=== PATIENT | female | born 1990 | race Caucasian/White ===

== ENCOUNTER 2017-02-05 15:35 | Emergency (ER) | payer BC, OTHER ==
[2017-02-05 15:43] VITALS: BP 103/73; PULSE 92; TEMP 98.3; BMI 24.3
[2017-02-05] MEDS ORDERED: IBUPROFEN 600 MG TABLET (FP) PO ONE ×2 (16:05→16:20)
--- NOTE | 2017-02-05 16:09 | PDOC ---
History of Present Illness - History of Present Illness Initial Comments: 02/05/17 16:17 The patient is a 26 year old female with no significant past medical history who presents to the Emergency Department with right foot/ankle pain and swelling since 11:30 this morning. Patient stated that she tripped and fell on a broken curb earlier. She was able to hobble across the street when the right foot and ankle pain began to really set in and worsened. She rates her pain 9/ 10. She is unable to ambulate without pain. She did not take Motrin or any pain medication. She denies any other pain or symptoms. <Nohemy Hall - Last Filed: 02/05/17 16:30> - General History Source: Patient Exam Limitations: No Limitations <Clarissa Cordero - Last Filed: 02/07/17 08:49> - General Chief Complaint: Injury Stated Complaint: RIGTH FOOT PAIN S/P FALL Time Seen by Provider: 02/05/17 15:43 Past History <Nohemy Hall - Last Filed: 02/05/17 16:30> - Past Medical History Asthma: No Cancer: No Cardiac Disorders: No CVA: No COPD: No CHF: No Dementia: No Diabetes: No GI Disorders: Yes (GERD) Disorders: No HTN: No Liver Disease: No Psychiatric Problems: Yes (anxiety, has been on Klonopin when necessary) Seizures: No Thyroid Disease: No - Surgical History Abdominal Surgery: No Appendectomy: No Cardiac Surgery: No Cholecystectomy: No Lung Surgery: No Neurologic Surgery: No Orthopedic Surgery: No - Immunization History Td Vaccination: Yes (11/28/13) Immunization Up to Date: Yes - Suicide/Smoking/Psychosocial Hx Smoking Status: No Smoking History: Never smoked Have you smoked in the past 12 months: No Number of Cigarettes Smoked Daily: 0 Information on smoking cessation initiated: No Hx Alcohol Use: No Drug/Substance Use Hx: No Substance Use Type: None Hx Substance Use Treatment: No <Clarissa Cordero - Last Filed: 02/07/17 08:49> - Past Medical History Allergies/Adverse Reactions: Allergies Allergy/AdvReac Type Severity Reaction Status Date / Time Penicillins Allergy Intermediate Verified 02/05/17 15:37 shellfish derived Allergy Verified 02/05/17 15:37 metoclopramide HCl AdvReac Severe Verified 02/05/17 15:37 [From Reglan] Home Medications: Ambulatory Orders Clonazepam [Klonopin] 1 mg PO PRN PRN tablet 11/23/13 Ibuprofen [Motrin -] 600 mg PO TID PRN #21 tablet 02/05/17 Levofloxacin [Levaquin] 0 mg PO ASDIR 02/05/17 Review of Systems - Review of Systems Comments:: 02/05/17 16:18 GENERAL/CONSTITUTIONAL: No: fever, chills, weakness, loss of appetite. HEAD, EYES, EARS, NOSE AND THROAT: No: change in vision, ear pain, discharge, sore throat, throat swelling. CARDIOVASCULAR: No: chest pain, lightheadedness, palpitations, syncope RESPIRATORY: No: cough, shortness of breath, wheezing, hemoptysis, stridor. GASTROINTESTINAL: No: nausea, vomiting, abdominal cramping, diarrhea, rectal bleeding, constipation. GENITOURINARY: No: dysuria, hematuria, frequency, urgency, flank pain. MUSCULOSKELETAL: + Right foot and ankle pain and swelling. No: back pain, neck pain, joint pain. SKIN AND BREASTS: No: lesions, pallor, rash or easy bruising. NEUROLOGIC: No: headache, vertigo, paresthesias, weakness ENDOCRINE: No: unexplained weight gain or loss HEMATOLOGIC/LYMPHATIC: No: anemia, easy bleeding, swelling nodes <Noehmy Hall - Last Filed: 02/05/17 16:30> *Physical Exam - Vital Signs Last Vital Signs Temp Pulse Resp BP Pulse Ox 98.3 F 92 H 18 103/73 100 02/05/17 15:36 02/05/17 15:36 02/05/17 15:36 02/05/17 15:36 02/05/17 15:36 - Physical Exam Comments: 02/05/17 16:30 GENERAL: The patient is in no acute distress. HEAD: Normal with no signs of trauma. EYES: PERRLA, EOMI, sclera anicteric, conjunctiva clear. ENT: Ears normal, nares patent, oropharynx clear without exudates. Moist mucous membranes. NECK: Normal range of motion, supple without lymphadenopathy, JVD, or masses. LUNGS: Breath sounds equal, clear to auscultation bilaterally. No wheezes, and no crackles. HEART:Regular rate and rhythm, normal S1 and S2 without murmur, rub or gallop. ABDOMEN: Soft, nontender, normoactive bowel sounds. No guarding, no rebound. EXTREMITIES: +Right lateral banquet bartender to palpation. +Swelling of the lateral malleolus. No lateral malleolar tenderness to palpation. No bruising. 2+ pt, 2+ , dp. Sensation intact. No clubbing or cyanosis. No erythema. NEUROLOGICAL: Cranial nerves II through XII grossly intact. Normal speech. No focal neurological deficits. MUSCULOSKELETAL: Back non-tender to palpation, no CVA tenderness SKIN: Warm, Dry, normal turgor, no rashes or lesions noted. <Nohemy Hall - Last Filed: 02/05/17 16:30> - Vital Signs Last Vital Signs Temp Pulse Resp BP Pulse Ox 98.3 F 92 H 18 103/73 100 02/05/17 15:36 02/05/17 15:36 02/05/17 15:36 02/05/17 15:36 02/05/17 15:36 <Clarissa Cordero - Last Filed: 02/07/17 08:49> ED Treatment Course - RADIOLOGY Radiology Studies Ordered: Category Date Time Status ANKLE & FOOT-RIGHT* [RAD] Stat Radiology 02/05/17 16:05 Ordered <Clarissa Cordero - Last Filed: 02/07/17 08:49> Medical Decision Making - Medical Decision Making 02/05/17 16:06 I, Dr. Clarissa Cordero, attest that this document has been prepared under my direction and personally reviewed by me in its entirety. I further attest, that it accurately reflects all work, treatment, procedures and medical decision -making performed by me. 02/05/17 16:06 26 yo F presenting to the ER with foot pain s/p trip and fall Pt states that she tripped over a curb PT currently has tenderness to palpation of the lateral malleolus and right lateral metatarsal Pt has not taken any motrin or tylenol for pain Pt states she was able to hobble before but currently can not bear weight on the foot Will do: xray Motrin for pain 02/05/17 17:44 Xray read as negative by radiologist Will discharge to home Air cast Follow up with Ortho There is a small possibility of occult fracture <Clarissa Cordero - Last Filed: 02/07/17 08:49> *DC/Admit/Observation/Transfer - Attestations Scribe Attestion: 02/05/17 16:18 Documentation prepared by Nohemy Hall, acting as infertility medical assistant for Clarissa Cordero MD. <Nohemy Hall - Last Filed: 02/05/17 16:30> - Discharge Dispostion Admit: No <Clarissa Cordero - Last Filed: 02/07/17 08:49> Diagnosis at time of Disposition: Right ankle sprain Qualifiers: Encounter type: initial encounter Involved ligament of ankle: unspecified ligament Qualified Code(s): S93.401A - Sprain of unspecified ligament of right ankle, initial encounter - Discharge Dispostion Disposition: HOME Condition at time of disposition: Stable - Prescriptions Prescriptions: Ibuprofen [Motrin -] 600 mg PO TID PRN #21 tablet PRN Reason: ankle pain - Referrals Referrals: Camacho uW MD [Staff Physician] - - Patient Instructions Printed Discharge Instructions: DI for Ankle Pain Additional Instructions: Thank you for coming in to the ER today Today you were seen for ankle pain and the X-ray demonstrated no signs of fracture (broken bone), for that reason it is more likely a sprain based on your symptoms and the appearance and exam findings of your ankle. Please be sure to rest, ice and elevate it and to avoid bearing weight until feeling better. You may take the medications weve provided you as directed but please be sure to read the instructions provided by the pharmacist to make sure you take the medications correctly. You should not participate in any sports for at least 1 week or until you are feeling better. Follow up with your primary cares office, or the referral weve provided you within 24 hours to inform them of todays visit and to see if they would like to /need to see you. If you develop any new or worsening symptoms, or any fevers that cant be controlled with Tylenol or Motrin go directly to the emergency room. - Post Discharge Activity Forms/Work/School Notes: Back to Work
[2017-02-05] MEDS ORDERED: ACETAMINOPHEN WITH CODEINE 300MG/30MG TABLET PO ONE (18:09)
[2017-02-05] MEDS ORDERED: ACETAMINOPHEN WITH CODEINE 300MG/30MG TABLET ONE (18:10)
== END 2017-02-05 18:11 | disposition home or self-care (01) ==
LOC: FER 15:35
DX: S93.401A Sprain of unspecified ligament of right ankle, initial encounter (principal); X58.XXXA Exposure to other specified factors, initial encounter; Y93.89 Activity, other specified; Y92.9 Unspecified place or not applicable
CPT/HCPCS: 73610-TC-RT; 73630-TC-RT; 99282-25

== ENCOUNTER 2018-12-19 12:33 | Emergency (ER) | payer OTHER ==
[2018-12-19 12:41] VITALS: BP 102/71; TEMP 97.8; BMI 25.1
[2018-12-19] MEDS ORDERED: FAMOTIDINE 20 MG TABLET PO ONE (13:12)
[2018-12-19] MEDS ORDERED: LORazepam 1 MG TABLET PO ONE (13:12)
[2018-12-19] MEDS ORDERED: FAMOTIDINE 20 MG TABLET ONE (13:14)
[2018-12-19] MEDS ORDERED: LORazepam 0.5 MG TABLET ONE (13:15)
--- NOTE | 2018-12-19 13:18 | PDOC ---
History of Present Illness - General Chief Complaint: Psychiatric Stated Complaint: ANXIETY Time Seen by Provider: 12/19/18 12:39 History Source: Patient, Parent(s) (both mom and dad) Exam Limitations: Clinical Condition (anxiety/panic attack) - History of Present Illness Initial Comments: 28 yo F, PMH GERD, p/w anxiety. History largely through mom and dad, as patient having difficulty speaking 2/2 anxiety and hyperventilation. Per the family, her told her he wanted to leave her about a month ago. 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 She did not sleep last night. Per family, they visited two crisis centers but were turned away because she is not suicidal. Patient complains of difficulty breathing and complains of sternal pain, as well as epigastric pain. She continues to sob and hyperventilate. Denies SI/HI. States that she has not taken any medications. 12/19/18 13:14 Past History - Past Medical History Allergies/Adverse Reactions: Allergies Allergy/AdvReac Type Severity Reaction Status Date / Time Penicillins Allergy Intermediate Verified 12/19/18 12:34 shellfish derived Allergy Verified 12/19/18 12:34 metoclopramide HCl AdvReac Severe Verified 12/19/18 12:34 [From Reglan] Home Medications: Ambulatory Orders Dexlansoprazole [Dexilant] 60 mg PO DAILY 12/19/18 LORazepam [Ativan] 1 - 2 tab PO TID PRN #20 tablet MDD 6 12/19/18 Asthma: No Cancer: No Cardiac Disorders: No CVA: No COPD: No CHF: No Dementia: No Diabetes: No GI Disorders: Yes (GERD) Disorders: No HTN: No Liver Disease: No Psychiatric Problems: Yes (ANXIETY) Seizures: No Thyroid Disease: No - Surgical History Abdominal Surgery: No Appendectomy: No Cardiac Surgery: No Cholecystectomy: No Lung Surgery: No Neurologic Surgery: No Orthopedic Surgery: No - Immunization History Td Vaccination: (11/28/13) Immunization Up to Date: Yes - Suicide/Smoking/Psychosocial Hx Smoking Status: No Smoking History: Never smoked Have you smoked in the past 12 months: No Number of Cigarettes Smoked Daily: 0 Information on smoking cessation initiated: No Hx Alcohol Use: No Drug/Substance Use Hx: No Substance Use Type: None Hx Substance Use Treatment: No Review of Systems - Review of Systems Able to Perform ROS?: Yes (limited by anxiety) Respiratory: Yes: Shortness of Breath Cardiac (ROS): Yes: Chest Pain Neurological: Yes: Tingling (in both hands) *Physical Exam - Vital Signs Last Vital Signs Temp Pulse Resp BP Pulse Ox 97.8 F 112 H 24 H 102/71 100 12/19/18 12:33 12/19/18 12:33 12/19/18 12:33 12/19/18 12:33 12/19/18 12:33 - Physical Exam General Appearance: Yes: Appropriately Dressed, Apparent Distress HEENT: positive: EOMI, HUSAM, Normal ENT Inspection, Pharynx Normal Neck: positive: Trachea midline, Supple. negative: Tender Respiratory/Chest: positive: Lungs Clear, Rapid RR Cardiovascular: positive: Regular Rhythm, Tachycardia Gastrointestinal/Abdominal: positive: Normal Bowel Sounds, Soft. negative: Tender Neurologic: positive: director oncology II-XII NML intact. negative: Normal Mood/Affect ( anxiety attack) Medical Decision Making - Medical Decision Making Plan to give 2mg Ativan for acute panic attack and 20mg famotidine for epigastric pain. 12/19/18 13:18 Patient reassessed, now calm, no longer hyperventilating. 12/19/18 13:55 *DC/Admit/Observation/Transfer Diagnosis at time of Disposition: Panic attack as reaction to stress - Discharge Dispostion Disposition: HOME Condition at time of disposition: Improved Decision to Admit order: No - Prescriptions Prescriptions: LORazepam [Ativan] 1 - 2 tab PO TID PRN #20 tablet MDD 6 PRN Reason: Anxiety - Referrals Referrals: Azeb Javed MD [Staff Physician] - - Patient Instructions Printed Discharge Instructions: DI for Anxiety -- Adult Additional Instructions: You were seen with a panic attack after recent stress. Please call Dr. Javed ) to set up an appointment. You can also contact [facility] at . Please take your benzodiazepine as needed for anxiety. - Post Discharge Activity Forms/Work/School Notes: Back to School
--- NOTE | 2018-12-19 15:34 | PDOC ---
Attending Attestation - Resident Resident Name: Anirudh Marte - ED Attending Attestation I have performed the following: I have examined & evaluated the patient, The case was reviewed & discussed with the resident, I agree w/resident's findings & plan, Exceptions are as noted - HPI HPI: 12/19/18 15:31 Complains of extreme anxiety, sleeplessness due to recently being informed that her is leaving her. She feels like her life is ruined. She is living with her mother and father, who provided emotional support willingly. She denies suicidal ideations, and has no history of depression or attempts to injure herself Has been unable to obtain an appointment with a therapist or psychiatrist despite numerous attempts. - Physicial Exam PE: 12/19/18 15:33 Alert oriented but very anxious female, hyperventilating. Otherwise physical exam is normal. Including completely normal neurologic and cardiac exams. - Medical Decision Making 12/19/18 15:33 Assessment: Anxiety due to recent separation from her , no sign of medical illness or danger to herself or others, considerable emotional support from her family Plan: Short course of benzodiazepines. Referral to a therapist and psychiatrist. Patient has much calmer, feels much better after administration of Ativan and is discharged with her mother to follow-up as directed.
[2018-12-19 18:14] VITALS: PULSE 79
== END 2018-12-19 15:30 | disposition home or self-care (01) ==
LOC: FER 12:33
DX: F41.0 Panic disorder [episodic paroxysmal anxiety] (principal); K21.9 Gastro-esophageal reflux disease without esophagitis
CPT/HCPCS: 99283-25

== ENCOUNTER 2021-05-02 19:53 | Emergency (ER) | payer OTHER, BC ==
[2021-05-02] MEDS ORDERED: KETOROLAC TROMETHAMINE 60 MG/2 ML VIAL IM ONE (20:21)
[2021-05-02 20:24] VITALS: BP 103/64; PULSE 83; TEMP 98.1; BMI 25.8
[2021-05-02] MEDS ORDERED: KETOROLAC TROMETHAMINE 60 MG/2 ML VIAL ONE (20:37)
== END 2021-05-02 21:29 | disposition home or self-care (01) ==
LOC: FER 19:53
PROC: 3E0233Z Introduction of Anti-inflammatory into Muscle, Percutaneous Approach (ICD-10-PCS; principal; 2021-05-02)
DX: S66.911A Strain of unspecified muscle, fascia and tendon at wrist and hand level, right hand, initial encounter (principal); M25.561 Pain in right knee; V89.2XXA Person injured in unspecified motor-vehicle accident, traffic, initial encounter
CPT/HCPCS: 73110-TC-RT-FY; 73560-TC-RT-FY; 73610-TC-RT-FY; 73630-TC-RT-FY; 99285-25

== ENCOUNTER 2021-05-31 18:50 | Emergency (ER) | payer BC, OTHER ==
[2021-05-31 19:16] VITALS: BP 113/76; PULSE 81; TEMP 97.8; BMI 25.8
[2021-05-31] MEDS ORDERED: oxyCODONE HCL 5 MG TABLET PO ONE (19:19)
[2021-05-31] MEDS ORDERED: oxyCODONE HCL 5 MG TABLET ONE (19:24)
[2021-05-31] MEDS ORDERED: valACYclovir HCL 1000 MG TABLET PO ONE (19:28)
[2021-05-31] MEDS ORDERED: valACYclovir HCL 500 MG TABLET (FP) ONE (19:34)
== END 2021-05-31 20:09 | disposition home or self-care (01) ==
LOC: FER 18:50
DX: B02.9 Zoster without complications (principal)
CPT/HCPCS: 99283-25

== ENCOUNTER 2021-12-09 14:50 | Emergency (ER) | payer BC ==
[2021-12-09] MEDS ORDERED: KETOROLAC TROMETHAMINE 30 MG/1 ML VIAL IM ONE (14:55)
[2021-12-09] MEDS ORDERED: KETOROLAC TROMETHAMINE 30 MG/1 ML VIAL ONE (14:59)
[2021-12-09 15:05] VITALS: BP 132/84; PULSE 93; RESP 20; TEMP 98.1; BMI 22.9
[2021-12-09] MEDS ORDERED: valACYclovir HCL 500 MG TABLET (FP) PO ONE (15:25)
[2021-12-09] MEDS ORDERED: valACYclovir HCL 500 MG TABLET (FP) ONE (15:26)
== END 2021-12-09 15:33 | disposition home or self-care (01) ==
LOC: FER 14:50
PROC: 3E0233Z Introduction of Anti-inflammatory into Muscle, Percutaneous Approach (ICD-10-PCS; principal; 2021-12-09)
DX: B02.9 Zoster without complications (principal)
CPT/HCPCS: 99284-25

== ENCOUNTER 2022-07-16 17:26 | Emergency (ER) | payer BC, OTHER ==
[2022-07-16] MEDS ORDERED: SODIUM CHLORIDE 0.9% 1000 ML INFUS.BAG IV ONE (18:05)
[2022-07-16] MEDS ORDERED: ACETAMINOPHEN 1000 MG/100 ML BAG IVPB ONE (18:05)
[2022-07-16] MEDS ORDERED: FAMOTIDINE 20 MG/50 ML IVPB 20 MG/50 ML MG IVPB ONE ×2 (18:05→18:09)
[2022-07-16] MEDS ORDERED: ONDANSETRON 4 MG/2 ML VIAL IVPUSH ONE (18:05)
[2022-07-16] MEDS ORDERED: DEXAMETHASONE SOD PHOSPHATE 4 MG/1 ML VIAL IVPUSH ONE (18:05)
[2022-07-16] MEDS ORDERED: DEXAMETHASONE SOD PHOSPHATE 4 MG/1 ML VIAL ONE (18:09)
[2022-07-16] MEDS ORDERED: ACETAMINOPHEN INJECTION 100 ML IVPB ONE (18:09)
[2022-07-16] MEDS ORDERED: ONDANSETRON 4 MG/2 ML VIAL ONE (18:23)
[2022-07-16 18:39] LABS: HEMATOCRIT 34.6 % (32.4-45.2); HEMOGLOBIN 12.1 G/dL (10.7-15.3); MCH 36.2 pg (25.7-33.7); MCHC 35.1 g/dl (32.0-36.0); MEAN CELL VOLUME 103.3 fl (80-96); MEAN PLT VOLUME 6.8 fl (7.5-11.1); PLATELET COUNT 229.8 10^3/uL (134-434); RBC 3.35 10^6/uL (3.60-5.2); RDW 12.5 % (11.6-15.6); WHITE BLOOD COUNT 5.1 10^3/uL (4.0-10.8)
[2022-07-16 18:48] LABS: ALBUMIN 3.7 g/dl (3.4-5.0); BILIRUBIN,TOTAL 0.3 mg/dl (0.2-1); CALCIUM 8.5 mg/dl (8.5-10); CREATININE 0.6 mg/dl (0.55-1.3); TOT PROT 6.8 g/dl (6.4-8.2)
[2022-07-16 19:26] VITALS: BP 135/96; PULSE 69; RESP 17; TEMP 98.2
== END 2022-07-16 19:27 | disposition home or self-care (01) ==
LOC: FER 17:26
PROC: 3E033GC Introduction of Other Therapeutic Substance into Peripheral Vein, Percutaneous Approach (ICD-10-PCS; principal; 2022-07-16)
DX: U07.1 COVID-19 (principal); J02.0 Streptococcal pharyngitis
CPT/HCPCS: 36415; 80053; 85027; 99284-25

== ENCOUNTER 2022-11-30 20:02 | Emergency (ER) | payer BC ==
[2022-11-30 20:24] VITALS: BP 117/84; PULSE 95; RESP 16; TEMP 97.9; BMI 26.0
[2022-11-30] MEDS ORDERED: LIDOCAINE 5% TOPICAL PATCH TP ONE (20:42)
[2022-11-30] MEDS ORDERED: LIDOCAINE 5% TOPICAL PATCH ONE (20:43)
[2022-11-30] MEDS ORDERED: KETOROLAC TROMETHAMINE 60 MG/2 ML VIAL IM ONE (20:52)
[2022-11-30] MEDS ORDERED: KETOROLAC TROMETHAMINE 60 MG/2 ML VIAL ONE (20:54)
[2022-11-30] MEDS ORDERED: LIDOCAINE PATCH REMOVAL MC SCH (22:00)
== END 2022-11-30 20:46 | disposition home or self-care (01) ==
LOC: FER 20:02
PROC: 3E0233Z Introduction of Anti-inflammatory into Muscle, Percutaneous Approach (ICD-10-PCS; principal; 2022-11-30)
DX: B02.22 Postherpetic trigeminal neuralgia (principal)
CPT/HCPCS: 99284-25

== ENCOUNTER 2024-11-21 20:39 | Emergency (ER) | payer BC ==
[2024-11-21 20:47] VITALS: BP 114/83; PULSE 98; RESP 17; TEMP 98.6; BMI 27.8
[2024-11-21] MEDS: SODIUM CHLORIDE 1,000 ML IV ONE (21:20)
[2024-11-21 21:33] LABS: MCHC 31.7 g/dl (32.2-35.5); MEAN CELL VOLUME 108.7 fl (79.4-94.8); MEAN PLT VOLUME 9.0 fl (9.4-12.3); RDW 13.8 % (12.1-16.8)
[2024-11-21] MEDS ORDERED: ACETAMINOPHEN INJECTION 100 ML ONE (21:34)
[2024-11-21] MEDS: morphine CARPU-JECT 2 MG/1 ML DISP.SYRIN IVPUSH ONE (21:35)
[2024-11-21] MEDS: ACETAMINOPHEN 1000 MG/100 ML BAG IVPB ONE (21:40)
[2024-11-21 21:48] LABS: EPITHELIAL CELLS FEW /hpf
[2024-11-21 21:54] LABS: ALK PHOS 82.0 U/L (45-117); CO2 28.0 mmol/L (21-32); CREATININE 0.9 mg/dl (0.6-1.3); GLUCOSE,RANDOM 76.0 mg/dl (74-106); SGOT/AST 13.0 U/L (15-37); SGPT/ALT 12.0 U/L (7-52); TOT PROT 6.0 g/dl (6.4-8.2)
[2024-11-21] MEDS ORDERED: POTASSIUM CHLORIDE TABS 20 MEQ TABLET.ER (FP) PO ONE ×2 (22:53→22:54)
== END 2024-11-21 23:42 | disposition home or self-care (01) ==
LOC: FER 20:39
PROC: 3E033NZ Introduction of Analgesics, Hypnotics, Sedatives into Peripheral Vein, Percutaneous Approach (ICD-10-PCS; principal; 2024-11-21)
PROC: 3E033NZ Introduction of Analgesics, Hypnotics, Sedatives into Peripheral Vein, Percutaneous Approach (ICD-10-PCS; 2024-11-21)
PROC: 3E0337Z Introduction of Electrolytic and Water Balance Substance into Peripheral Vein, Percutaneous Approach (ICD-10-PCS; 2024-11-21)
DX: R19.7 Diarrhea, unspecified (principal); R11.2 Nausea with vomiting, unspecified; R10.31 Right lower quadrant pain
CPT/HCPCS: 36415; 74177-TC; 80053; 81003; 81015; 81025; 83605; 83690; 83735; 85025; 86803; 87086; 99285-25; Q9967